=== PATIENT | male | born 1995 | race Caucasian/White ===

== ENCOUNTER 2019-09-02 02:32 | Emergency (ER) | payer BC ==
[2019-09-02 02:43] VITALS: BP 154/98; PULSE 110
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
[2019-09-02 03:52] LABS: ANION GAP 17.5 mEq/L (7-13); CHLORIDE,CL 106 mmol/L (98-107); SODIUM,NA 143 mmol/L (136-145)
== END 2019-09-02 04:09 | disposition home or self-care (01) ==
LOC: DL.ED 02:32
DX: F10.129 Alcohol abuse with intoxication, unspecified (principal); Y90.6 Blood alcohol level of 120-199 mg/100 ml; Z88.1 Allergy status to other antibiotic agents; Y04.2XXA Assault by strike against or bumped into by another person, initial encounter
CPT/HCPCS: 36415; 70450; 80053; 80307; 85025; 99284-25

== ENCOUNTER 2020-09-17 15:09 | Emergency (ER) | payer BC ==
[2020-09-17 15:29] VITALS: BP 142/81; PULSE 75
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
== END 2020-09-17 16:30 | disposition home or self-care (01) ==
LOC: DL.ED 15:09
DX: S50.12XA Contusion of left forearm, initial encounter (principal); Z88.0 Allergy status to penicillin; W22.09XA Striking against other stationary object, initial encounter
CPT/HCPCS: 73080-LT; 99282; 99283-25

== ENCOUNTER 2021-04-08 14:38 | Emergency (ER) | payer BC ==
[2021-04-08 15:31] VITALS: BP 126/104; PULSE 84
== END 2021-04-08 18:31 | disposition home or self-care (01) ==
LOC: DL.ED 14:38
DX: H10.33 Unspecified acute conjunctivitis, bilateral (principal); Z88.0 Allergy status to penicillin
CPT/HCPCS: 99283

== ENCOUNTER 2024-02-15 10:42 | Emergency (ER) | payer BC ==
[2024-02-15 12:17] LABS: BASOPHILS PERCENT AUTO 0.2 % (0.0-1.0); HEMATOCRIT 43.8 % (40.0-54.0); MEAN CORPUSCULAR HEMOGLOBIN 28.2 pg (27.0-34.0); MEAN CORPUSCULAR HGB CONC 34.2 g/dL (33.0-35.0); MEAN CORPUSCULAR VOLUME 82.5 fL (80-100); MONOCYTES PERCENT AUTO 11.2 % (2-8); NEUTROPHILS PERCENT AUTO 69.6 % (42.2-75.2); PLATELET COUNT,PLT 229 10^3/uL (150-450); RED BLOOD CELL COUNT 5.31 10^6/uL (4.6-6.2); WHITE BLOOD CELL COUNT,WBC 4.8 10^3/uL (5.0-10.0)
[2024-02-15 12:37] LABS: A/G RATIO 0.7; ALBUMIN 3.2 g/dL (3.4-5.0); ANION GAP 16.1 mEq/L (7-13); BILIRUBIN TOTAL 0.6 mg/dL (0.2-1.0); BUN/CREATININE RATIO 13.1 (No establ ref range); CREATININE 1.22 mg/dL (0.70-1.30); EST CRCL DRUG DOSING (CG) 88.54 mL/min; POTASSIUM,K 4.1 mmol/L (3.5-5.1); PROTEIN TOTAL,TP 7.8 g/dL (6.4-8.2)
[2024-02-15 13:22] VITALS: BP 134/88; PULSE 89
== END 2024-02-15 13:30 | disposition home or self-care (01) ==
LOC: DL.ED 10:42
DX: J18.9 Pneumonia, unspecified organism (principal); Z88.0 Allergy status to penicillin
CPT/HCPCS: 36415; 71045; 80053; 85025; 99284; 99285

== ENCOUNTER 2024-02-22 09:57 | Inpatient (IN) | payer BC ==
[2024-02-22] MEDS: Sodium Chloride 0.9% 10 ML Syringe FLUSH PRN ×2 (10:20→12:22)
[2024-02-22] MEDS: Sodium Chloride 0.9% 1,000 ML IV ONE (10:32)
[2024-02-22 10:40] LABS: BASOPHILS PERCENT AUTO 0.2 % (0.0-1.0); EOSINOPHILS PERCENT AUTO 2.7 % (1.0-3.0); HEMATOCRIT 48.3 % (40.0-54.0); HEMOGLOBIN 16.3 g/dL (14.0-18.0); LYMPHOCYTES PERCENT AUTO 25.7 % (20.5-50.1); MEAN CORPUSCULAR HEMOGLOBIN 29.2 pg (27.0-34.0); MEAN CORPUSCULAR HGB CONC 33.7 g/dL (33.0-35.0); MEAN CORPUSCULAR VOLUME 86.6 fL (80-100); MONOCYTES PERCENT AUTO 9.1 % (2-8); NEUTROPHILS PERCENT AUTO 62.3 % (42.2-75.2); PLATELET COUNT,PLT 354 10^3/uL (150-450); RED BLOOD CELL COUNT 5.58 10^6/uL (4.6-6.2)
[2024-02-22 10:56] LABS: BASE EXCESS VENOUS 1.5 mmol/l ((-2)-(+3)); BICARBONATE,VENOUS 27 mmol/l (19-25); O2 DELIVERY DEVICE NASAL CANNULA; O2 SATURATION VENOUS 60.1 % (60-80); PCO2 VENOUS 50 mmHg (41-51); PH,VENOUS 7.36 (7.31-7.41); PO2 VENOUS 42 mmHg (35-42)
[2024-02-22] MEDS: Albuterol 0.083% 2.5 MG/3 ML Neb Soln NEB ONE (11:02)
[2024-02-22] MEDS: Doxycycline 100 MG in Sodium Chloride 0.9% 100 ML IV ONE (11:28)
[2024-02-22 11:43] LABS: ALANINE AMINOTRANSFERASE,ALT 46 U/L (16-63); ALBUMIN 3.1 g/dL (3.4-5.0); ALKALINE PHOSPHATASE 86 U/L (46-116); ANION GAP 10.9 mEq/L (7-13); ASPARTATE AMNIOTRANSFERASE,AST 19 U/L (15-37); BILIRUBIN TOTAL 0.6 mg/dL (0.2-1.0); BLOOD UREA NITROGEN,BUN 15 mg/dL (7-18); BUN/CREATININE RATIO 12.2 (No establ ref range); CALCIUM 9.1 mg/dL (8.5-10.1); CARBON DIOXIDE,CO2 30 mmol/L (21-32); CHLORIDE,CL 102 mmol/L (98-107); CREATININE 1.23 mg/dL (0.70-1.30); GLUCOSE RANDOM 94 mg/dL (70-99); POTASSIUM,K 4.9 mmol/L (3.5-5.1); PROTEIN TOTAL,TP 7.6 g/dL (6.4-8.2); SODIUM,NA 138 mmol/L (136-145)
[2024-02-22 11:44] LABS: A/G RATIO 0.69; ESTIMATED GFR 81 mL/min (>=60)
[2024-02-22 11:57] LABS: B-TYPE NATRIURETIC PEPTIDE,BNP 11 pg/ml (0-100)
[2024-02-22] MEDS: Iopamidol 755 Mg/ML 100 ML Bottle IVPUSH ONE (12:03)
[2024-02-22] MEDS ORDERED: Ondansetron 4 MG/2 ML SDV IVPUSH PRN (14:48)
[2024-02-22] MEDS ORDERED: Docusate Sodium 100 MG Cap PO PRN (14:48)
[2024-02-22] MEDS ORDERED: Acetaminophen 325 MG Tab PO PRN (14:48)
[2024-02-22] MEDS ORDERED: oxyCODONE 5 MG Tab PO PRN (14:48)
[2024-02-22] MEDS ORDERED: Melatonin 3 MG Tab PO PRN (14:48)
[2024-02-22] MEDS: methylPREDNISolone Sodium Succinate 40 MG/1 ML SDV IVPUSH SCH (16:58)
[2024-02-22] MEDS: Sodium Chloride 0.9% 1,000 ML IV SCH (16:58)
[2024-02-22] MEDS: Azithromycin 500 MG in Sodium Chloride 0.9% 250 ML IV SCH (16:59)
[2024-02-22] MEDS: Enoxaparin 40 MG/0.4 ML Syringe SUBCUT SCH (17:07)
[2024-02-22] MEDS: Aztreonam 2 GM in Sodium Chloride 0.9% 100 ML IV SCH (21:18)
[2024-02-22] MEDS: Sodium Chloride 0.9% 100 ML ONE (21:31)
[2024-02-23] MEDS: Albuterol/Ipratropium 3.0-0.5 MG/3 ML Neb Soln NEB PRN (04:44)
[2024-02-23] MEDS: Loratadine 10 MG Tab PO SCH (17:14)
[2024-02-24] MEDS: Diphtheria,Pertussis(Acell),Tetanus Vaccine 0.5 ML Syringe IM ONE (07:40)
[2024-02-24] MEDS: Bacitracin Oint 1 GM U/D Packet TOP ONE (07:42)
[2024-02-24] MEDS: Lidocaine 1% 5 ML VIAL INJECT ONE (07:43)
[2024-02-24] MEDS: guaiFENesin 600 MG Tab.ER PO SCH (09:45)
[2024-02-25 07:50] VITALS: BP 120/75; PULSE 78
== END 2024-02-25 11:10 | disposition home or self-care (01) | DRG 137 ==
LOC: DL.ED 09:57 → DL.MS 13:49
PROVIDERS: ADMIT Internal Medicine; ATTEND Internal Medicine
PROC: 0HQ1XZZ Repair Face Skin, External Approach (ICD-10-PCS; principal; 2024-02-24)
DX: J15.211 Pneumonia due to Methicillin susceptible Staphylococcus aureus (principal); F15.90 Other stimulant use, unspecified, uncomplicated; S01.112A Laceration without foreign body of left eyelid and periocular area, initial encounter; Z79.51 Long term (current) use of inhaled steroids; Z79.2 Long term (current) use of antibiotics; Z79.899 Other long term (current) drug therapy; Z88.1 Allergy status to other antibiotic agents
CPT/HCPCS: 71046; 71275; 80053; 82803; 83605; 83735; 83880; 84145; 85025; 85379; 86140; 87040; 87070; 87205; 87428-QW; 90471; 90715; 94618; 96365; 99222; 99232; 99239; 99284; 99285-25; A9270-GY; J0456; J0457; J2919; J3490; J7030; J7613-GY; J7620-GY; Q9967